=== PATIENT | female | born 1995 | race Two or more races ===

== ENCOUNTER 2017-08-03 13:52 | Emergency (ER) | payer OTHER ==
[~2017-08-03] VITALS: Ht 172.7 cm; Wt 93.0 kg
[2017-08-03 13:52] VITALS: BP 120/85
[2017-08-03] MEDS ORDERED: NKM (14:03)
[2017-08-03] MEDS ORDERED: IBUPROFEN600 MG ORAL (14:09)
[2017-08-03] MEDS ORDERED: ROBAXIN-750750 MG PO (14:09)
--- NOTE | 2017-08-03 14:13 | Emergency Room Report ---
History of Present Illness General Chief Complaint: Back Injury Source: Patient Present Illness HPI Patient presents with complaints of right mid back pain She was pushing a client in a wheelchair The client apparently put the brakes on and there was a jolting effect. patient had initial discomfort to the right mid back waited for 2 hours and after the pain continued she was concerning came to the ER denies any fall or other direct contact This occurred approximately 12:30 this afternoon Patient has taken a Motrin Denies any focal weakness Pain is 5/10 worse with movement or touch Allergies: Coded Allergies: No Known Allergies (Unverified , 08/03/17) Patient History Past Medical History: see triage record Pertinent Family History: none Now: No Reviewed Nursing Documentation: PMH: Agreed, PSxH: Agreed Nursing Documentation-PMH Past Medical History: No Stated History Review of Systems All Other Systems: negative except mentioned in HPI Physical Exam Vital Signs Date Time Temp Pulse Resp B/P (MAP) Pulse Ox O2 Delivery O2 Flow Rate FiO2 08/03/17 13:59 97.5 72 16 130/84 97 Room Air Sp02 EP Interpretation: reviewed, normal General Appearance: well appearing, no apparent distress Head: normocephalic, atraumatic Eyes: bilateral eye PERRL, bilateral eye EOMI ENT: normal pharynx Neck: full range of motion, supple Respiratory: chest non-tender, lungs clear Cardiovascular #1: regular rate, rhythm, no edema Gastrointestinal: non tender Genitourinary: no CVA tenderness Musculoskeletal: other - Mild discomfort palpated right paraspinal midthoracic region T5-T6 area no midline tenderness Neurologic: alert, oriented x3 Skin: no rash Lymphatic: no adenopathy Medical Decision Making Diagnostic Impression: Primary Impression: back sprain ER Course Given the patient's history examined presentation appears to have findings in line with back strain I do not suspect any obvious acute fractures Patient did not have criteria for emergency imaging she will be trialed on Motrin and muscle relaxers and return with any changes otherwise follow close in the next 2 days with workers comp clinic Last Vital Signs Date Time Temp Pulse Resp B/P (MAP) Pulse Ox O2 Delivery O2 Flow Rate FiO2 08/03/17 13:59 97.5 72 16 130/84 97 Room Air Status: improved Disposition: HOME, SELF-CARE Condition: Improved Scripts Methocarbamol* (ROBAXIN-750*) 750 Mg Tablet 750 MG PO TID, #21 TAB 0 Refills Prov: MAMI CONTRERAS D.O. 08/03/17 Ibuprofen* (MOTRIN*) 600 Mg Tablet 600 MG ORAL Q8H Y for For Pain, #30 TAB 0 Refills Prov: MAMI CONTRERAS D.O. 08/03/17 Patient Instructions: Thoracic Strain Additional Instructions: Patient is provided with the discharge instructions notified to follow up with primary doctor in the next 2-3 days otherwise return to the er with any worsening symptoms. Please note that this report is being documented using [employer] technology. This can lead to erroneous entry secondary to incorrect interpretation by the dictating instrument. MAMI CONTRERAS D.O. Aug 03, 2017 14:13
[2017-08-03] MEDS ORDERED: Methocarbamol 750mg tab ORAL ONE (14:15)
[2017-08-03 14:23] VITALS: BP 130/84
== END 2017-08-03 14:24 | disposition home or self-care (01) ==
LOC: EMR 14:16
DX: S23.3XXA Sprain of ligaments of thoracic spine, initial encounter (principal); X58.XXXA Exposure to other specified factors, initial encounter; Y93.9 Activity, unspecified; Y99.0 Civilian activity done for income or pay
CPT/HCPCS: 99283